=== PATIENT | female | born 1970 | race Caucasian/White ===

== ENCOUNTER 2025-05-16 07:39 | Outpatient (CLI) | payer OTHER, SELFPAY ==
--- NOTE | 2025-05-16 06:00 | DI.RAD_ITS ---
Exam(s) XR PAIN CLINIC LUMBAR SP 2V EXAM: XR PAIN CLINIC LUMBAR SP 2V CLINICAL HISTORY: Dx: Lumbar Radiculopathy TECHNIQUE: 2D and realtime digital imaging was performed. Radiologist not present. CONTRAST MATERIAL: None. COMPARISON: No exams were available for comparison FINDINGS: Fluoroscopy was provided for pain management therapy. Lumbar epidural steroid injection Please refer to procedure report or details. Radiation Exposure Index: Ka,r=5.01 mGy IMPRESSION: As above. RADIATION DOSE DELIVERED:
[2025-05-16 07:43] VITALS: BP 107/86; PULSE 100; RESP 18; TEMP 36.5; O2SAT 97
--- NOTE | 2025-05-16 07:52 | PDOC.PAIN ---
Date of service: 05/16/25 Time of Service: 08:41 Pain Managment Procedure Note Procedure Note Procedure Note: Lumbar Interlaminar Epidural Steroid Injection Location: L4-5 Pre-procedure Diagnosis: M54.16- Radiculopathy, LUMBAR region Post-procedure Diagnosis: The same as above Sedation: None Medication: Depo-Medrol 80 mg, Omnipaque 1 mL Estimated blood loss: less than 2 ml Surgeon: Brad Hernandez MD COMMENT: Patient has disc protrusion right lateral recess L4-5 Procedure Detail: The procedure and potential risks were explained to the patient and informed written consent was obtained. The patient was escorted to the procedure room and placed in the prone position. Pillows were utilized for proper positioning and comfort. Time out was performed in the procedure room with nursing staff confirming the patient's identity, procedure to be performed, allergies, and any blood thinning or anti-platelet medications. The patient's neck and upper back was prepped with ChloraPrep and draped in a sterile fashion. Sterile technique was maintained throughout the procedure. Sterile gloves were used, a face mask was worn, and new single dose vials of all medications were used with the top being swabbed with alcohol and given time to dry prior to withdrawal of medication. Lidocane 1% was used to anesthetize the skin.Using a 25-gauge 1.5 inch needle, 1% lidocaine was instilled into the superficial soft tissue overlying the targeted area to provide local anesthesia. With fluoroscopic guidance, a 17 -gauge Tuohy needle was advanced toward the interlaminar space of L4-5. The needle was then advance through the ligamentum flavum and into the posterior epidural space using the loss of resistance technique. Correct needle placement was confirmed through review of the AP and lateral fluoroscopic views. A 19-gauge arrow catheter was threaded cephalad and to the Right Following negative aspiration, 1 ml of Omnipaque 240 contrast was injected which confirmed good flow throughout the epidural space and no evidence of vascular flow or flow into adjacent compartments. Next, following negative aspiration, 1 ml of 1% lidocaine and 80mg of Depo-Medrol was injected. The needle was gently removed. The patient tolerated the procedure well and was transported to the recovery area for observation and discharge instructions. Permanent images saved and recorded. PAIN PRE-PROCEDURE 04/28 POST-PROCEDURE 010 Plan: Follow up prn. COMMENT: Repeat as needed Coding Conscious Sedation used for procedure: No CPT Codes: Inj Spine L/S w/Imaging - [id number] ([id number] ~G) Additional Codes: Date of Service () Diagnoses: M54.16- Radiculopathy, LUMBAR region
--- NOTE | 2025-05-16 08:14 | PDOC.PAIN2_ITS ---
History of Present Illness History of Present Illness Chief Complaint: LBP to RLE History of Present Illness: History of Present Illness: Ms. Fitzpatrick is a pleasant 55-year-old female accompanied by her today. The patient presents today with low back pain to right lower extremity to ankle . They are kindly referred by Dr. Patton for evaluation and treatment. They state that symptoms first began approximately 2 months ago. The pain began with no identifiable inciting event. Patient has tried oral steroids which has not helped. She is doing physical therapy therapy with still having pain and taking gabapentin. She complains of some weakness and numbness. The patient denies fever or chills. The patient denies saddle anesthesia or recent onset of bowel or bladder incontinence. Review of Systems: Negative except for pertinent positive and negative findings as specified in the HPI. MRI lumbar spine Imaging: MRI lumbar spine 04/18/2025 L4-5 disc bulge superimposed right paracentral disc protrusion appears to abut the right L5 nerve root in the later al recess Review of Systems Medications/Allergies Allergies Allergy/AdvReac Type Severity Reaction Status Date / Time codeine Allergy Severe Other (See Verified 05/16/25 07:50 Comment) Medications: Current Medications Iohexol (Omnipaque 240 Mg/Ml 50 Ml Btl) 0 ml IJ DIRECTED [facility] Stop: 05/16/25 23:59 Methylprednisolone Acetate (Methylprednisolone Acetate 40 Mg/Ml Vial) 0 mg IJ DIRECTED [facility] Miscellaneous (Epidural Tray) 1 each MC DIRECTED [facility] Sodium Chloride (Normal Saline 20 Ml Vial) 0 ml IJ DIRECTED [facility] Objective Exam Vitals and I&O: Vital Signs Temperature 36.5 C 05/16/25 07:43 Pulse 100 H 05/16/25 07:43 Respiratory Rate 18 05/16/25 07:43 Blood Pressure 107/86 05/16/25 07:43 Pulse Oximetry 97 05/16/25 07:43 Oxygen Delivery Method Room Air 05/16/25 07:43 Oxygen Flow Rate 0 05/16/25 07:43 Intake & Output 05/15/25 05/15/25 05/16/25 11:59 23:59 11:59 Weight 85.275 kg Other physical findings: Constitutional: The Patient’s vital signs were NORMAL and reviewed with the patient. The patient is in no acute distress. Respiratory: There is no respiratory distress Cardiovascular: Normal heart rate Skin (to the painful area): The skin was grossly normal to the area of pain Eyes: EOMI, no scleral icterus Psychological: Normal mood and affect Gait: normal Focused Lumbar Spine Physical Exam Appearance: No edema, erythema, ecchymosis, or muscle wasting noted. Normal iliac crest alignment. No scars noted. Normal lumbar lordosis. No scoliosis appreciated. Palpation: Non-tender to palpation over the spinous processes of the lumbar spine. Non- tender to palpation over the left lumbar paraspinal muscles. Non-tender to palpation over the right lumbar paraspinal muscles. SI joints: Non-tender to palpation over the right sacroiliac joint. Non-tender to palpation over the left sacroiliac joint. Range of motion: No pain with forward flexion of the lumbar spine. Kumar: Mildly positive right Sensory: Normal sensation to light touch throughout both lower extremities Strength: Hip flexion (L2, L3): Right: 5/5 Left: 5/5 Knee flexion (L5-S2): Right: 5/5 Left: 5/5 Knee extension (L3, L4): Right: 5/5 Left: 5/5 Ankle dorsiflexion (L4, L5): Right: 5/5 Left: 5/5 Foot plantarflexion (S1): Right: 5/5 Left: 5/5 Great toe dorsiflexion (L5): Right: 5/5 Left: 5/5 Patient can heel and toe walk DTRs: +2 bilaterally patella and Achilles Special Tests: Straight leg raise test: Positive right Ambulatory Orders Medication Instructions Recorded celecoxib 100 mg capsule (Celebrex) 100 mg PO BID 04/20 11/11 gabapentin 100 mg tablet 100 mg PO TID 05/12/25 gabapentin 300 mg capsule 300 mg PO QID 05/12/25 metaxalone 800 mg tablet 800 mg PO TID 05/12/25 nirmatrelvir 300 mg (150 mg See Rx Instructions PO .CO MPLEX 05/12/25 x2)-ritonavir 100 mg tablet,dose pack (Paxlovid) oxycodone-acetaminophen 10 mg-325 1 tab PO QID 5 mg tablet oxycodone-acetaminophen 5 mg-325 1 tab PO BID 05/12/25 mg tablet prednisone 20 mg tablet 20 mg PO BID 05/12/25 acetaminophen 325 mg tablet (Aphen) 650 mg PO Q6H PRN 05/16/25 Assessment/Plan Assessment/Plan (1) Lumbar radiculopathy: Assessment: Assessment: 55-year-old female with small disc protrusion on the right that is causing significant radicular pain. Neurologically she is intact. I think is reasonable to try an epidural steroid at this time. Problem 1: Low back pain to right lower extremity The pain is impacting the patient's ability to continue with their usual daily activities and resulting in decreased quality of life. The patient´s symptoms and physical exam are most consistent with lumbar radiculitis. This problem is a new medical condition Plan Orders:none Referrals: none Interventions: Proceed with lumbar epidural steroid injection at L4-5 with a catheter to the right Medication Management: No changes. Other Recommendations/Discussion: none Risks, benefits, and alternatives of the plan and treatments were discussed in detail. The patient indicated understanding potential risks and benefits and would like to proceed as outlined above. Follow up: Could repeat as needed Medical Decision Making Treatment and diagnostic options discussed and/or considered for the patient´s problem include [physical therapy, prescription medications, and targeted interventional therapy]. [Patient specific risk factors considered in selection of treatment options include history of] [diabetes mellitus] [requirement for chronic anticoagulation or antiplatelet therapy]. Notes from each unique source reviewed today: [none] Results from each unique test reviewed today: [none] Dragon statement-the chart was completed utilizing [employer] speech recognition software grammatical errors, random word insertions, pronoun errors and incomplete sentences are an occasional consequence of this systems due to software limitations, ambient noise and hardware issues. Any formal questions or concerns about the content, text or information contained within the body of this dictation should be directly addressed with provider for clarification.
[2025-05-16 08:15] VITALS: PULSE 88; O2SAT 97
[2025-05-16 08:20] VITALS: PULSE 85; O2SAT 95
[2025-05-16] MEDS: Epidural Tray 1 EACH MC (08:34)
[2025-05-16] MEDS: Omnipaque 240 MG/ML 50 ML BTL IJ (08:34)
[2025-05-16] MEDS: methylPREDNISolone ACETATE 40 MG/ML VIAL IJ (08:34)
--- NOTE | 2025-05-16 08:42 | PDOC.PAIN2 ---
Review of Systems Medications/Allergies Allergies Allergy/AdvReac Type Severity Reaction Status Date / Time codeine Allergy Severe Other (See Verified 05/16/25 07:50 Comment) Medications: Current Medications Iohexol (Omnipaque 240 Mg/Ml 50 Ml Btl) 0 ml IJ DIRECTED [facility] Stop: 05/16/25 23:59 Last Admin: 05/16/25 08:34 Dose: 1 ml Methylprednisolone Acetate (Methylprednisolone Acetate 40 Mg/Ml Vial) 0 mg IJ DIRECTED [facility] Last Admin: 05/16/25 08:34 Dose: 80 mg Miscellaneous (Epidural Tray) 1 each MC DIRECTED [facility] Last Admin: 05/16/25 08:34 Dose: 1 each Sodium Chloride (Normal Saline 20 Ml Vial) 0 ml IJ DIRECTED [facility] Objective Exam Vitals and I&O: Vital Signs Temperature 36.5 C 05/16/25 07:43 Pulse 85 05/16/25 08:20 Respiratory Rate 18 05/16/25 07:43 Blood Pressure 107/86 05/16/25 07:43 Pulse Oximetry 95 05/16/25 08:20 Oxygen Delivery Method Room Air 05/16/25 07:43 Oxygen Flow Rate 0 05/16/25 07:43 Intake & Output 05/15/25 05/15/25 05/16/25 11:59 23:59 11:59 Weight 85.275 kg Ambulatory Orders Medication Instructions Recorded celecoxib 100 mg capsule (Celebrex) 100 mg PO BID 05/12/25 gabapentin 100 mg tablet 100 mg PO TID 05/12/25 gabapentin 300 mg capsule 300 mg PO QID 05/12/25 metaxalone 800 mg tablet 800 mg PO TID 05/12/25 nirmatrelvir 300 mg (150 mg See Rx Instructions PO .COMPLEX 05/12/25 x2)-ritonavir 100 mg tablet,dose pack (Paxlovid) oxycodone-acetaminophen 10 mg-325 1 tab PO QID 05/12/25 mg tablet oxycodone-acetaminophen 5 mg-325 1 tab PO BID 05/12/25 mg tablet prednisone 20 mg tablet 20 mg PO BID 05/12/25 acetaminophen 325 mg tablet (Aphen) 650 mg PO Q6H PRN 05/16/25 Assessment/Plan Assessment/Plan (1) Lumbar radiculopathy:
== END 2025-05-16 07:40 | disposition home or self-care (01) ==
LOC: PC 07:42
PROVIDERS: Visit Provider Anesthesiology Pain Medicine
DX: M54.16 Radiculopathy, lumbar region (principal)
CPT/HCPCS: 62323; 72100; J1010; Q9967